=== PATIENT | male | born 1980 | race Caucasian/White ===

== ENCOUNTER 2021-06-24 13:30 | Outpatient (RCR) | payer MEDICAID, SELFPAY | END 2021-06-24 23:59 | disposition home or self-care (01) | LOC: ANHAUDIO 13:30 | PROVIDERS: Visit Provider Otolaryngology | DX: Z46.1 Encounter for fitting and adjustment of hearing aid (principal) | CPT/HCPCS: 99199; V5160; V5261; V5264 ==